=== PATIENT | female | born 1995 | race Caucasian/White ===

== ENCOUNTER 2021-05-29 11:44 | Emergency (ER) | payer OTHER, SELFPAY ==
[2021-05-29] MEDS ORDERED: ACETAMINOPHEN 325 MG TABLET (FP) PO ONE (11:47)
[2021-05-29 11:57] VITALS: BP 133/92; PULSE 74; TEMP 99.3; BMI 29.0
== END 2021-05-29 12:41 | disposition home or self-care (01) ==
LOC: FER 11:44
DX: S09.90XA Unspecified injury of head, initial encounter (principal)
CPT/HCPCS: 99283-25

== ENCOUNTER 2021-09-12 10:03 | Emergency (ER) | payer OTHER ==
[2021-09-12 10:18] VITALS: BP 128/90; PULSE 78; TEMP 98.4; BMI 29.0
== END 2021-09-12 10:41 | disposition home or self-care (01) ==
LOC: FER 10:03
DX: R68.89 Other general symptoms and signs (principal); V49.50XA Passenger injured in collision with unspecified motor vehicles in traffic accident, initial encounter
CPT/HCPCS: 99282-25

== ENCOUNTER 2021-12-15 22:03 | Emergency (ER) | payer OTHER ==
[2021-12-15 22:09] VITALS: BP 145/85; PULSE 79; TEMP 99; BMI 30.7
== END 2021-12-15 22:29 | disposition home or self-care (01) ==
LOC: FER 22:03
DX: Z77.21 Contact with and (suspected) exposure to potentially hazardous body fluids (principal)
CPT/HCPCS: 99281-25

== ENCOUNTER 2022-01-08 17:13 | Emergency (ER) | payer OTHER ==
[2022-01-08] MEDS ORDERED: ACETAMINOPHEN 325 MG TABLET (FP) PO ONE (17:31)
[2022-01-08] MEDS ORDERED: ACETAMINOPHEN 325 MG TABLET (FP) ONE (17:51)
[2022-01-08 17:56] VITALS: BP 131/83; PULSE 91; TEMP 98.9; BMI 30.7
== END 2022-01-08 18:45 | disposition home or self-care (01) ==
LOC: FER 17:13
DX: M25.532 Pain in left wrist (principal)
CPT/HCPCS: 73110-TC-LT-FY; 99283-25

== ENCOUNTER 2022-07-08 15:30 | Emergency (ER) | payer OTHER ==
[2022-07-08 15:50] VITALS: BP 128/86; PULSE 77; RESP 18; TEMP 99.1; BMI 30.7
[2022-07-08] MEDS ORDERED: IBUPROFEN 600 MG TABLET (FP) PO ONE ×2 (15:55→15:57)
== END 2022-07-08 16:43 | disposition home or self-care (01) ==
LOC: FER 15:30
DX: S80.01XA Contusion of right knee, initial encounter (principal)
CPT/HCPCS: 73560-TC-RT-FY; 99284-25

== ENCOUNTER 2022-12-25 14:45 | Emergency (ER) | payer OTHER ==
[2022-12-25 15:07] VITALS: BP 138/88; PULSE 98; RESP 18; TEMP 98; BMI 32.3
[2022-12-25] MEDS ORDERED: ACETAMINOPHEN 500 MG TABLET (FP) PO ONE (15:25)
[2022-12-25] MEDS ORDERED: ACETAMINOPHEN 500 MG TABLET (FP) ONE (15:31)
== END 2022-12-25 16:45 | disposition home or self-care (01) ==
LOC: FER 14:45
DX: S00.83XA Contusion of other part of head, initial encounter (principal); S80.02XA Contusion of left knee, initial encounter; W22.8XXA Striking against or struck by other objects, initial encounter; Y35.811A Legal intervention involving manhandling, law enforcement official injured, initial encounter
CPT/HCPCS: 99283-25

== ENCOUNTER 2024-01-07 10:42 | Emergency (ER) | payer OTHER ==
[2024-01-07 10:49] VITALS: BP 140/85; PULSE 73; RESP 18; TEMP 98.8; BMI 28.2
[2024-01-07] MEDS ORDERED: LIDOCAINE 5% TOPICAL PATCH ONE (11:02)
[2024-01-07] MEDS ORDERED: IBUPROFEN 600 MG TABLET (FP) PO ONE (11:02)
[2024-01-07] MEDS: IBUPROFEN 600 MG TABLET (FP) PO ONE (11:06)
== END 2024-01-07 12:10 | disposition home or self-care (01) ==
LOC: FER 10:42
DX: M25.532 Pain in left wrist (principal); S63.92XA Sprain of unspecified part of left wrist and hand, initial encounter; X50.1XXA Overexertion from prolonged static or awkward postures, initial encounter
CPT/HCPCS: 73110-TC-LT-FY; 73130-TC-LT-FY; 99283-25

== ENCOUNTER 2024-05-12 13:54 | Emergency (ER) | payer OTHER ==
[2024-05-12] MEDS ORDERED: IBUPROFEN 600 MG TABLET (FP) PO ONE (14:00)
[2024-05-12 14:01] VITALS: BP 126/101; PULSE 75; RESP 18; TEMP 97.9; BMI 26.6
[2024-05-12] MEDS: IBUPROFEN 600 MG TABLET (FP) PO ONE (14:02)
== END 2024-05-12 15:20 | disposition home or self-care (01) ==
LOC: FER 13:54
DX: M25.532 Pain in left wrist (principal); Y04.0XXA Assault by unarmed brawl or fight, initial encounter
CPT/HCPCS: 73110-TC-LT-FY; 73130-TC-LT-FY; 99283-25

== ENCOUNTER 2024-06-01 12:00 | Emergency (ER) | payer OTHER, BC ==
[2024-06-01] MEDS ORDERED: DIPHTH,PERTUSS(ACELL),TET 0.5 ML DISP.SYRIN IM ONE (12:08)
[2024-06-01 12:09] VITALS: BP 147/77; PULSE 74; RESP 17; TEMP 98.8; BMI 26.9
== END 2024-06-01 12:26 | disposition home or self-care (01) ==
LOC: FER 12:00
DX: S80.811A Abrasion, right lower leg, initial encounter (principal); W13.8XXA Fall from, out of or through other building or structure, initial encounter
CPT/HCPCS: 99282-25

== ENCOUNTER 2024-09-26 12:38 | Emergency (ER) | payer OTHER, BC ==
[2024-09-26 13:23] VITALS: BP 120/88; PULSE 73; RESP 18; TEMP 98.1; BMI 28.2
== END 2024-09-26 14:05 | disposition home or self-care (01) ==
LOC: FER 12:38
DX: Z77.21 Contact with and (suspected) exposure to potentially hazardous body fluids (principal)
CPT/HCPCS: 99282-25